=== PATIENT | male | born 2000 | race Caucasian/White ===

== ENCOUNTER 2019-03-21 13:14 | Emergency (ER) | payer BC ==
[2019-03-21 14:00] VITALS: BP 124/74
[2019-03-21] MEDS ORDERED: Famotidine TAB* 20 MG PO ONE (14:45)
--- NOTE | 2019-03-21 14:49 | UC ---
Allergic Reaction HPI - HPI Summary HPI Summary: 18-year-old male comes in with a chief complaint of hives. Started yesterday. He is not sure what he is having a reaction to. He's been taking Benadryl which helped some with the symptoms. The hives itch. They started on the arms and spread over his whole body. No difficulty swallowing or breathing. No prior history of allergic reaction. - History of Current Complaint Chief Complaint: UCSkin Stated Complaint: SKIN Time Seen by Provider: 03/21/19 14:39 Pain Intensity: 0 - Allergies/Home Medications Allergies/Adverse Reactions: Allergies Allergy/AdvReac Type Severity Reaction Status Date / Time No Known Allergies Allergy Verified 03/21/19 13:55 Home Medications: Home Medications diphenhydrAMINE HCl [Benadryl Allergy 25 MG CAP] 2 tab PO ONCE 03/21/19 [ History Confirmed 03/21/19] PMH/Surg Hx/FS Hx/Imm Hx Previously Healthy: Yes - Surgical History Surgical History: None - Family History Known Family History: Positive: Non-Contributory - Social History Alcohol Use: Weekly Substance Use Type: Marijuana Smoking Status (MU): Never Smoked Tobacco Review of Systems All Other Systems Reviewed And Are Negative: Yes Constitutional: Positive: Negative Skin: Positive: Other - SEE HPI Eyes: Positive: Negative ENT: Positive: Negative Respiratory: Positive: Negative Cardiovascular: Positive: Negative Gastrointestinal: Positive: Negative Motor: Positive: Negative Neurovascular: Positive: Negative Musculoskeletal: Positive: Negative Neurological: Positive: Negative Psychological: Positive: Negative Is Patient Immunocompromised?: No Physical Exam Triage Information Reviewed: Yes Appearance: Well-Appearing, No Pain Distress, Well-Nourished Vital Signs: Initial Vital Signs Temp 98.2 F 03/21/19 13:55 Pulse 52 03/21/19 13:55 Resp 16 03/21/19 13:55 BP 124/74 03/21/19 13:55 Pulse Ox 100 03/21/19 13:55 Vital Signs Reviewed: Yes Eye Exam: Normal Eyes: Positive: Conjunctiva Clear ENT: Positive: Pharynx normal, Uvula midline, Other - Oral pharynx is open. Voice is normal.. Negative: Muffled voice, Hoarse voice Neck: Positive: Supple Respiratory: Positive: Lungs clear, Normal breath sounds, No respiratory distress Cardiovascular: Positive: RRR Musculoskeletal: Positive: Strength Intact, ROM Intact Neurological: Positive: Alert, Muscle Tone Normal Psychological: Positive: Age Appropriate Behavior Skin: Positive: Other - Diffuse scattered hives on the trunk and arms. No hives on the face. Allergic Reaction Course/Dx - Course Course Of Treatment: We will treat with Pepcid 20 mg twice a day and prednisone 40 mg once a day and Benadryl 50 mg every 6 hours as needed. I let the patient know that if he worsened headache difficulty swallowing or breathing or felt ill he needs to go the emergency department. - Differential Dx/Diagnosis Provider Diagnosis: Allergic reaction Discharge ED - Sign-Out/Discharge Documenting (check all that apply): Patient Departure All imaging exams completed and their final reports reviewed: No Studies - Discharge Plan Condition: Stable Disposition: HOME Prescriptions: Famotidine TAB* [Pepcid 20 MG TAB*] 20 mg PO BID PRN #8 tab PRN Reason: Allergy Symptoms predniSONE TAB* [Deltasone 20 MG TAB*] 40 mg PO DAILY PRN #8 tab PRN Reason: Allergy Symptoms Patient Education Materials: General Allergic Reaction (ED) Referrals: [facility] [Outside] [facility] [Outside] Additional Instructions: FOLLOW UP WITH YOUR DOCTOR IF NOT COMPLETELY IMPROVED. GO TO THE EMERGENCY DEPARTMENT IF WORSE; DIFFICULTY BREATHING OR SWALLOWING OR ANY QUESTIONS OR CONCERNS. TAKE BENADRYL 50MG EVERY 6 HOURS NEEDED TAKE PEPCID 20MG TWICE A DAY NEEDED TAKE PREDNISONE DIRECTED NEEDED - Billing Disposition and Condition Condition: STABLE Disposition: Home
== END 2019-03-21 14:54 | disposition home or self-care (01) ==
LOC: UCCORT 13:14
DX: T78.40XA Allergy, unspecified, initial encounter (principal); L50.9 Urticaria, unspecified; X58.XXXA Exposure to other specified factors, initial encounter; Y92.9 Unspecified place or not applicable
CPT/HCPCS: 99202; A9270-GY; G0463; J7512